=== PATIENT | male | born 1985 ===

== ENCOUNTER 2017-08-11 17:22 | Emergency (ER) | payer OTHER ==
--- NOTE | 2017-08-11 17:31 | ED PDOC ---
HPI: General Adult Time Seen by Provider: 08/11/17 17:31 Chief Complaint (Nursing): Abnormal Skin Integrity Chief Complaint (Provider): fall, head injury History Per: Patient Additional Complaint(s): 31-year-old male presents with head injury and facial lacerations. Patient tripped and fell earlier today. Patient states he drinks alcohol almost every day but has not had a drink daily and he thinks he may be experiencing withdrawals. Patient feels very tremulous. He denies chest pain, shortness of breath or dyspnea on exertion. Patient is unsure of last tetanus. PMD: none Past Medical History Reviewed: Historical Data, Nursing Documentation, Vital Signs Vital Signs: Last Vital Signs Temp 97.3 F L 08/11/17 17:27 Pulse 76 08/11/17 19:46 Resp 16 08/11/17 19:46 BP 123/65 08/11/17 19:46 Pulse Ox 97 08/11/17 19:46 - Medical History PMH: No Chronic Diseases - Surgical History Surgical History: No Surg Hx - Family History Family History: States: No Known Family Hx - Living Arrangements Living Arrangements: With Family - Social History Current smoker - smoking cessation education provided: No Alcohol: > 2 Drinks/Day Drugs: Denies - Immunization History Hx Tetanus Toxoid Vaccination: No (not sure of last bosoter) - Allergies Allergies/Adverse Reactions: Allergies Allergy/AdvReac Type Severity Reaction Status Date / Time No Known Allergies Allergy Verified 08/11/17 17:27 Review of Systems ROS Statement: Except As Marked, All Systems Reviewed And Found Negative Skin: Positive for: Other (facial lacerations) Neurological: Positive for: Other (head injury with no LOC) Psych: Positive for: Withdrawal (etoh), Other (h/o etoh abuse) Physical Exam - Reviewed Nursing Documentation Reviewed: Yes Vital Signs Reviewed: Yes - Physical Exam Appears: Positive for: Well, Non-toxic, No Acute Distress Head Exam: Negative for: ATRAUMATIC (2 cm laceration noted to the right lateral eyebrow, additional 1 cm laceration noted to right upper eyelid, this is not a through and through laceration, minimal active bleeding, neurovascular intact) Skin: Positive for: Normal Color. Negative for: Rash Eye Exam: Positive for: Normal appearance ENT: Positive for: Other (Superficial abrasion to lower lip, not through vermilion border, airway patent, uvula midline, dentition intact with no acute fractures) Cardiovascular/Chest: Positive for: Regular Rate, Rhythm Respiratory: Positive for: Normal Breath Sounds Extremity: Positive for: Normal ROM Neurologic/Psych: Positive for: Alert, Oriented, Other (tremulous) - Laboratory Results Result Diagrams: 08/11/17 18:22 08/11/17 18:22 - ECG O2 Sat by Pulse Oximetry: 98 Pulse Ox Interpretation: Normal - Other Rad CT head and facial bones X-Ray: Read By Radiologist Medical Decision Making Medical Decision Makin31 year old with head and facial injuries, h/o etoh abuse Plan: CT head and facial bones CBC CMP BAL IV 2 mg ativan PO librium IVF Lac repair K is low, 40 meq Kdur ordered PO. Procedure Note: Under sterile conditions lacerations to right eyebrow and upper eyelid were anesthetized with a total of 12 mL of 1% lidocaine without epinephrine, good anesthesia was achieved, wounds were irrigated copiously with normal saline and Betadine. Both lacerations were repaired using 5-0 chromic suture material via running stitch. Good approximation was achieved, good bleeding control was achieved, procedure tolerated well by patient, no acute complications. Disposition - Clinical Impression Clinical Impression: Alcohol dependence with withdrawal, Facial laceration, Need for tetanus booster - Patient ED Disposition Is Patient to be Admitted: Transfer of Care - Disposition Disposition: Transfer of Care Disposition Time: 20:00 Condition: FAIR Forms: [facility] (Japanese) Patient Signed Over To: Megan Baldwin Handoff Comments: Signed out pending diagnostic testing results, reevaluation and final disposition
[2017-08-11] MEDS ORDERED: Tdap Vaccine 0.5 ml Vial (10-64 yrs) IM ONE ×2 (17:42→18:02)
[2017-08-11] MEDS ORDERED: Lidocaine 1% w Epi 1:100,000 Inj INJ STA (17:59)
[2017-08-11] MEDS ORDERED: Lidocaine 1% Inj (20ml) ONE (18:03)
[2017-08-11] MEDS ORDERED: Lidocaine 1% Inj (20ml) IJ STA (18:09)
[2017-08-11] MEDS ORDERED: Povidone Iodine Topical 10% Sol ONE (18:23)
[2017-08-11 18:29] LABS: BASO % 0.3 % (0.0-2.0); HEMOGLOBIN 11.9 g/dL (12.0-18.0); LYMPH # 0.3 K/uL (1.0-4.3); LYMPH % 3.7 % (20.0-40.0); MEAN CORPUSCULAR HEMOGLOBIN 31.2 pg (27.0-31.0); MEAN PLATELET VOLUME 6.8 fl (7.2-11.7); MONO % 10.9 % (0.0-10.0); NEUT # 7.6 K/uL (1.8-7.0); NEUT % 85.1 % (50.0-75.0); PLATELET COUNT 135 K/uL (130-400); RBC 3.81 Mil/uL (4.40-5.90); RED CELL DISTRIBUTION WIDTH 15.5 % (11.5-14.5)
[2017-08-11 18:39] LABS: ALB/GLOB RATIO 1.1 (1.0-2.1); ALBUMIN 4.4 g/dL (3.5-5.0); ALT/SGPT 149 U/L (21-72); AST/SGOT 234 U/L (17-59); BLOOD UREA NITROGEN 12 mg/dl (9-20); CALCIUM 9.1 mg/dL (8.4-10.2); GFR AFRICAN-AMERICAN > 60; GFR NON-AFRICAN AMERICAN > 60
[2017-08-11] MEDS ORDERED: Potassium Chloride 20 mEq ER Tab PO STA (19:30)
[2017-08-11 19:46] VITALS: RESP 16
[2017-08-11 19:59] VITALS: O2SAT 98
[2017-08-11 20:05] LABS: BANDS 1 % (0-2); BASOPHIL 1 % (0-2); LYMPHOCYTE 6 % (20-50); MONOCYTE 5 % (0-10); NEUTROPHIL 86 % (42-75); REACTIVE LYMPHOCYTES 1 % (0-0); TOTAL CELLS COUNTED 100
[2017-08-11 20:06] LABS: ANISOCYTOSIS SLIGHT; HYPOCHROMIC SLIGHT; POIKILOCYTOSIS SLIGHT
[2017-08-11 20:07] LABS: STOMATOCYTES SLIGHT; TARGET CELLS SLIGHT
[2017-08-11 20:08] LABS: LARGE PLATELETS PRESENT; PLATELET ESTIMATE NORMAL (NORMAL)
--- NOTE | 2017-08-11 20:28 | ED PDOC ---
- Laboratory Results Result Diagrams: 08/11/17 18:22 08/11/17 18:22 - ECG O2 Sat by Pulse Oximetry: 98 - Progress ED Course And Treament: Case endorsed to conventional underwriter from [facility] pending CT reports and re-eval EXAM: CT Head Without Intravenous Contrast EXAM DATE/TIME: 08/11/2017 5:41 PM CLINICAL HISTORY: 31 years old, male; Injury or trauma; Fall; Initial encounter; Concussion / head injury; Consciousness not specified TECHNIQUE: Axial computed tomography images of the head/brain without intravenous contrast. All CT scans at this facility use one or more dose reduction techniques, viz.: automated exposure control; ma/kV adjustment per patient size (including targeted exams where dose is matched to indication; i.e. head); or iterative reconstruction technique. Coronal and sagittal reformatted images were created and reviewed. COMPARISON: No relevant prior studies available. FINDINGS: Brain: Normal. No hemorrhage. No significant white matter disease. No edema. Ventricles: Normal. No ventriculomegaly. Bones/joints: There is dehiscence of the left lamina papyracea, likely chronic. There is a chronic appearing left orbital floor fracture. Sinuses: There is polypoid mucosal thickening within the left maxillary sinus. Mastoid air cells: Normal as visualized. No mastoid effusion. Soft tissues: There is right periorbital soft tissue injury. IMPRESSION: No acute intracranial hemorrhage or calvarial fracture. Chronic appearing left lamina papyracea and left orbital floor fractures. EXAM: CT Maxillofacial Without Intravenous Contrast EXAM DATE/TIME: 08/11/2017 5:43 PM CLINICAL HISTORY: 31 years old, male; Injury or trauma; Fall; Initial encounter; Abrasion; Orbit/ periorbital and lip/oral cavity; Right; Lower; Additional info: Facial trauma TECHNIQUE: Axial computed tomography images of the face without intravenous contrast. All CT scans at this facility use one or more dose reduction techniques, viz.: automated exposure control; ma/kV adjustment per patient size (including targeted exams where dose is matched to indication; i.e. head); or iterative reconstruction technique. Coronal and sagittal reformatted images were created and reviewed. COMPARISON: No relevant prior studies available. FINDINGS: Bones/joints: There are chronic appearing left lamina papyracea and left orbital floor fractures.There are chronic appearing nasal bone fractures.. Soft tissues: There is right periorbital soft tissue injury. Orbits: The globes, extraocular muscles and optic nerves appear symmetric bilaterally. There is mild rightward deviation of the left medial rectus muscle into the fracture defect. Sinuses: There is mild ethmoid mucosal thickening. There is mild to moderate bilateral maxillary sinus mucosal thickening. Dental: Multifocal maxillary and mandibular periapical lucencies are compatible with severe periodontal disease. IMPRESSION: Suspected chronic facial fractures. No definite acute fracture. Right periorbital soft tissue injury. 21:45 Patient awake, alert, oriented x3. States he is feeling better. No tremors noted. VSS Patient advised to follow up with PMD 2-3 days. Ice affected areas. Tylenol/ Ibuprofen PRN pain. Return precautions given Disposition - Clinical Impression Clinical Impression: Alcohol dependence with withdrawal, Facial laceration, Need for tetanus booster - POA Present On Arrival: Falls Or Trauma - Disposition Referrals: [facility] [Outside] Disposition: Routine/Home Disposition Time: 21:47 Condition: STABLE Instructions: Laceration Repair, Minor Head Injury, Alcohol Abuse and Alcoholism (DC) Forms: [facility] (German) Print Language: DUTCH
[2017-08-11] MEDS ORDERED: Potassium Chloride 20 mEq ER Tab PO ONE (20:49)
[2017-08-11 22:06] VITALS: BP 122/70; PULSE 82; TEMP 98.9
--- NOTE | 2017-08-12 08:12 | CT ---
PROCEDURE: CT HEAD WITHOUT CONTRAST. HISTORY: trauma COMPARISON: None available. TECHNIQUE: Axial computed tomography images were obtained through the head/brain without intravenous contrast. Radiation dose: Total exam DLP = 920 mGy-cm. This CT exam was performed using one or more of the following dose reduction techniques: Automated exposure control, adjustment of the mA and/or kV according to patient size, and/or use of iterative reconstruction technique. FINDINGS: HEMORRHAGE: No intracranial hemorrhage. BRAIN: No mass effect or edema. There is mild generalized atrophy (patient's age is noted) ischemic changes. VENTRICLES: Unremarkable. No hydrocephalus. CALVARIUM: Unremarkable. PARANASAL SINUSES: Left maxillary sinus rounded retention cyst and/or polyp present. The medial left maxillary sinus/ left lamina papyracea C is deformed -abnormally concave in its configuration. No particularly prominent soft tissue swelling here is noted there is also some deformity of the left orbital floor her coronal images compatible with a likely chronic left orbital floor fracture. Please note the same-day maxillofacial CT study MASTOID AIR CELLS: Unremarkable as visualized. No inflammatory changes. OTHER FINDINGS: Right periorbital soft tissue swelling compatible with acute trauma. IMPRESSION: No intra cranial hemorrhage or mass effect. Acute right very or pleural soft tissue swelling -compatible with current clinical history of recent trauma. Old left lamina papyracea and old left orbital floor fracture . Please note the same-day CT maxillofacial study report Mild cerebral atrophy - no worthy given patient's 31 years of age Concordant results (preliminary interpretation) provided by [facility].
--- NOTE | 2017-08-12 08:20 | CT ---
PROCEDURE: CT MAXILLOFACIAL BONES WITHOUT CONTRAST HISTORY: facial trauma COMPARISON: None TECHNIQUE: Contiguous axial CT images of the maxillofacial bones were obtained. Coronal and sagittal reformats were generated. Radiation dose: Total exam DLP = 860 mGy-cm. This CT exam was performed using one or more of the following dose reduction techniques: Automated exposure control, adjustment of the mA and/or kV according to patient size, and/or use of iterative reconstruction technique. FINDINGS: NASAL BONES: Chronic appearing left-sided nasal bone fractures -non depressed ORBITS: Old left orbital floor fracture no marked or gross entrapment of the inferior left rectus muscle apparent. Chronic appearing left lamina papyracea fracture with abnormal concavity here and inward partial inclusion likely of the left medial rectus muscle into the fracture defect Right periorbital soft tissue swelling compatible with acute trauma here. The globe and extraocular muscles and optic nerves appear symmetric PARANASAL SINUSES/ MASTOIDS: Bilateral maxillary sinus thick and lobulated mucosal thickening with bilateral antral retention cyst and/or polyps here suggested. Findings extend into each ostiomeatal unit. Concomitant bilateral ethmoidal sinus inflammatory changes. MAXILLA: No additional acute fractures MANDIBLE/ TEMPOROMANDIBULAR JOINTS: No additional acute fractures SKULL BASE: Unremarkable. TEMPORAL BONES: Middle ears and mastoid grossly unremarkable. OTHER FINDINGS: Mandibular and maxillary dental periapical lucencies compatible with periodontal disease/caries; probable developmental variant of supernumerary teeth as well IMPRESSION: Right periapical orbital soft tissue swelling -acute finding compatible with the current recent trauma history. No right neha facial fractures noted Chronic/ old appearing left lamina papyracea and old appearing left orbital floor fracture -as detailed above Paranasal sinus inflammatory changes - mostly chronic appearing. Retention cysts here also suggested Periodontal disease/caries Concordant results (preliminary interpretation) provided by [facility].
== END 2017-08-11 22:06 | disposition home or self-care (01) ==
LOC: H.ER 17:22 → EDBD 17:22 → MERGE 17:22 → H.ER 22:06
DX: S01.81XA Laceration without foreign body of other part of head, initial encounter (principal); Z23 Encounter for immunization; F10.239 Alcohol dependence with withdrawal, unspecified; W01.0XXA Fall on same level from slipping, tripping and stumbling without subsequent striking against object, initial encounter; J32.9 Chronic sinusitis, unspecified
CPT/HCPCS: 12011; 70450; 70486; 80053; 80320; 82948; 85025; 90471; 90715; 99284; J2060

== ENCOUNTER 2017-08-20 11:00 | Emergency (ER) | payer OTHER ==
[2017-08-20 11:15] VITALS: BP 136/81; PULSE 75; RESP 19; TEMP 99.2
[2017-08-20 11:25] VITALS: O2SAT 98
--- NOTE | 2017-08-20 11:57 | ED PDOC ---
HPI: General Adult Time Seen by Provider: 08/20/17 11:55 Chief Complaint (Nursing): Abnormal Skin Integrity Chief Complaint (Provider): wound check History Per: Patient (31 y/o male here for evaluation of laceration repair done 08/11/2017. Patient denies any complaints.) Past Medical History Reviewed: Historical Data, Nursing Documentation, Vital Signs Vital Signs: Last Vital Signs Temp 99.2 F 08/20/17 11:14 Pulse 75 08/20/17 11:14 Resp 19 08/20/17 11:14 BP 136/81 08/20/17 11:14 Pulse Ox 98 08/20/17 11:23 - Family History Family History: States: Unknown Family Hx - Immunization History Hx Tetanus Toxoid Vaccination: No Hx Influenza Vaccination: No Hx Pneumococcal Vaccination: No - Allergies Allergies/Adverse Reactions: Allergies Allergy/AdvReac Type Severity Reaction Status Date / Time No Known Allergies Allergy Verified 08/20/17 11:23 Review of Systems ROS Statement: Except As Marked, All Systems Reviewed And Found Negative Physical Exam - Reviewed Nursing Documentation Reviewed: Yes Vital Signs Reviewed: Yes - Physical Exam Appears: Positive for: Well, Non-toxic, No Acute Distress Head Exam: Positive for: ATRAUMATIC, NORMAL INSPECTION, NORMOCEPHALIC Skin: Positive for: Normal Color (Two lacerations repaired right eyebrow healing well. Noted most likely vicryl suture material.), Warm Eye Exam: Positive for: EOMI, Normal appearance, PERRL ENT: Positive for: Normal ENT Inspection Neck: Positive for: Normal, Painless ROM Cardiovascular/Chest: Positive for: Regular Rate, Rhythm Respiratory: Positive for: CNT, Normal Breath Sounds Gastrointestinal/Abdominal: Positive for: Normal Exam, Soft Back: Positive for: Normal Inspection Extremity: Positive for: Normal ROM Neurologic/Psych: Positive for: Alert, Oriented - ECG O2 Sat by Pulse Oximetry: 98 - Progress ED Course And Treament: old chart reviewed. patient was sutured with chromic gut. Wound cleansed. Bacitracin ointment applied. Disposition - Clinical Impression Clinical Impression: Encounter for evaluation of wound - Patient ED Disposition Is Patient to be Admitted: No - Disposition Referrals: [facility] [Outside] Disposition: Routine/Home Disposition Time: 11:58 Condition: FAIR Instructions: Wound Care (DC)
== END 2017-08-20 12:17 | disposition home or self-care (01) ==
LOC: H.ER 11:00
DX: Z48.02 Encounter for removal of sutures (principal)

== ENCOUNTER 2017-08-25 13:41 | Emergency (ER) | payer OTHER ==
[2017-08-25 13:52] VITALS: BP 135/83; PULSE 92; RESP 19; TEMP 98.5; O2SAT 98
--- NOTE | 2017-08-25 14:24 | ED PDOC ---
HPI: Wound Care - HPI Time Seen by Provider: 08/25/17 13:52 Chief Complaint (Nursing): Wound Check Chief Complaint (Provider): Wound Check History Per: Patient Exam Limitations: no limitations Additional Complaint(s): 31 year old male presents to the emergency department for a wound check to the right upper eyelid. Patient was seen here on 08/11/2017 with placed in sutures, returned again on 08/20/2017 for suture removal, and advised to return today for wound recheck. Denies discharge and pain. Offers no other complaints. Past Medical History Reviewed: Historical Data, Nursing Documentation, Vital Signs Vital Signs: Last Vital Signs Temp 98.5 F 08/25/17 13:49 Pulse 92 H 08/25/17 13:49 Resp 19 08/25/17 13:49 BP 135/83 08/25/17 13:49 Pulse Ox 98 08/25/17 13:49 - Medical History PMH: No Chronic Diseases - Surgical History Surgical History: No Surg Hx - Family History Family History: States: Unknown Family Hx - Social History Current smoker - smoking cessation education provided: No Alcohol: None Drugs: Denies - Immunization History Hx Tetanus Toxoid Vaccination: No Hx Influenza Vaccination: No Hx Pneumococcal Vaccination: No - Allergies Allergies/Adverse Reactions: Allergies Allergy/AdvReac Type Severity Reaction Status Date / Time No Known Allergies Allergy Verified 08/20/17 11:23 Review of Systems ROS Statement: Except As Marked, All Systems Reviewed And Found Negative (As per HPI, otherwise negative) Constitutional: Negative for: Other (No discharge or any other complaints. ) Eyes: Positive for: Other (Right upper eyelid healing wound. ) Physical Exam - Reviewed Nursing Documentation Reviewed: Yes Vital Signs Reviewed: Yes - Physical Exam Appears: Positive for: Well, Non-toxic, No Acute Distress Head Exam: Positive for: ATRAUMATIC, NORMAL INSPECTION, NORMOCEPHALIC Skin: Positive for: Normal Color, Warm, Dry Eye Exam: Positive for: Normal appearance, EOMI, Other (Healing wound on the right upper eyelid. No erythema, swelling, or discharge noted. No suture in place. ) Neurologic/Psych: Positive for: Alert, Oriented (x3) - ECG O2 Sat by Pulse Oximetry: 98 (RA) Pulse Ox Interpretation: Normal Medical Decision Making Medical Decision Making: Time: 1352 Initial impression: Initial plan: --Previous records indicated chromatic gut sutures were used and no non- absorbable sutures placed. --No suture in place. Time: 1410 Patient is medically clear for discharge. Follow up with primary care doctor in 2-3 days. Clinical Impression: Encounter for wound re-check Scribe Attestation: Documented by Shannon Zhou, acting as a scribe for Dilip Morgan PA-C. Provider Scribe Attestation: All medical record entries made by the Scribe were at my direction and personally dictated by me. I have reviewed the chart and agree that the record accurately reflects my personal performance of the history, physical exam, medical decision making, and the department course for this patient. I have also personally directed, reviewed, and agree with the discharge instructions and disposition. Disposition - Clinical Impression Clinical Impression: Encounter for wound re-check - Patient ED Disposition Is Patient to be Admitted: No Counseled Patient/Family Regarding: Diagnosis, Need For Followup - Disposition Referrals: [facility] [Outside] Disposition: Routine/Home Disposition Time: 14:10 Condition: STABLE Instructions: Wound Care (DC) Forms: [facility] (Maldivian) Print Language: ARGENTINE
== END 2017-08-25 14:22 | disposition home or self-care (01) ==
LOC: SUPCPDRO 13:41 → H.ER 13:41
DX: Z48.00 Encounter for change or removal of nonsurgical wound dressing (principal)